=== PATIENT | male | born 1960 | race Caucasian/White ===

== ENCOUNTER 2019-10-12 08:19 | Day surgery (SDC) | payer MEDICARE, MEDICAID ==
[~2019-10-12] VITALS: Ht 182.9 cm; Wt 181.8 kg
[~2019-10-12 08:19] MED LIST: BACL10TA PO; CLOP75TA15 PO; LEVO50TA8 PO; MICONAZOLE 2% TOP; TERA5CAP4 PO
[2019-10-12 08:31] VITALS: BP 132/77
[2019-10-12] MEDS ORDERED: LEVO75TA7 PO (08:39)
[2019-10-12] MEDS ORDERED: METO-384 PO (08:40)
[2019-10-12] MEDS ORDERED: FURO-150 PO (08:40)
[2019-10-12] MEDS ORDERED: POTA10TA19 PO (08:41)
[2019-10-12] MEDS ORDERED: ALBU18HF2 INH (08:42)
[2019-10-12] MEDS ORDERED: GLIM2TAB6 PO (08:42)
[2019-10-12] MEDS ORDERED: FLUT16SP2 BOTHNARES (08:43)
[2019-10-12] MEDS ORDERED: fentaNYL/PF 50MCG/1 ML 2ML syringe ONE (08:58)
[2019-10-12] MEDS ORDERED: LIDOcaine Viscous 15ml cup ONE (08:58)
[2019-10-12] MEDS ORDERED: MIDAZolam 5mg/5ml vial ONE (08:58)
[2019-10-12 10:15] VITALS: BP 143/96
[2019-10-12 10:21] VITALS: BP 144/83
[2019-10-12 10:31] VITALS: BP 165/89
[2019-10-12 10:41] VITALS: BP 149/89
[2019-10-12 10:46] VITALS: BP 159/78
== END 2019-10-12 10:51 | disposition home or self-care (01) ==
LOC: GI LAB 08:19
PROVIDERS: ATTEND Internal Medicine Gastroenterology
DX: I85.00 Esophageal varices without bleeding (principal); K31.89 Other diseases of stomach and duodenum; K29.50 Unspecified chronic gastritis without bleeding
CPT/HCPCS: 43239; G0500; J2250; J3010; J7040; 99152; A4620